=== PATIENT | male | born 1995 | race Caucasian/White ===

== ENCOUNTER 2018-07-24 19:05 | Emergency (ER) | payer OTHER ==
[~2018-07-24] VITALS: Ht 170.2 cm; Wt 62.3 kg
[2018-07-24 19:06] VITALS: BP 137/78
[2018-07-24] MEDS ORDERED: IBUPROFEN 100 MG/5 ML SUSP UDC DYE FREE PO ONE (19:30)
== END 2018-07-24 19:49 | disposition home or self-care (01) ==
LOC: M ED 19:05
DX: B34.9 Viral infection, unspecified (principal)